=== PATIENT | female | born 1945 | race Caucasian/White ===

== ENCOUNTER 2017-02-13 14:58 | Day surgery (SDC) | payer MEDICARE, MEDICAID ==
[~2017-02-13 14:58] MED LIST: ABILIFY5 M1 PO; ABILIFY5 MG PO; ADVAIR 5001 DISK W/D; ADVAIR 50028 BLISTE1 INH; ADVAIR 50028 BLISTER INH; AIRET0.83 MG/ML; ALBUTEROL17 GM; ALBUTEROL17 GM INH; ALPRAZOLAM1 MG; AMILORIDE HCL-H1 TAB PO; ANTIVERT12.5 MG; ANTIVERT25 M1 PO; ANTIVERT25 MG PO; ATROVENT0.2 MG/ML; BENADRYL25 MG/TA1 PO; BYSTOLIC5 M1 PO; CALCIUM 500 +1 EAC9 PO; CENTRUM SILVER1 TA; CLOBETASOL PROP15 G1 TP; CLONAZEPAM0.5 M2 PO; DARVOCET-N 1001 TAB; EFFER-K 10 MEQ10 MEQ PO; EFFEXOR XR150 M1 PO; EFFEXOR XR150 MG; EFFEXOR100 MG PO; ELAVIL100 MG; ELAVIL100 MG PO; FIBERCON625 M1 PO; FLONASE ALLERG9.9 ML NS; FLONASE16 GM; FLONASE16 GM NS; FOSAMAX70 M1 PO; GLYCOLAX527 GM; HYZAAR 100-12.1 EACH PO; INCRUSE ELLI62.5 MCG INH; IRON325 M3 PO; LAMICTAL100 M2 PO; LORTAB 5/5001 EA PO; LOTREL 10/20 MG1 CAP; METRONIDAZOLE45 GM TP; MICROZIDE12.5 MG; MIRALAX17 G2 PO; MIRALAX17 GM PO; MODURETIC 5/501 TAB; MODURETIC 5/501 TAB PO; MOTRIN400 MG PO; MULTIVITAMINS1 EACH PO; NORTRIPTYLINE H50 MG; NORVASC10 M2 PO; NYSTATIN1 EACH MC; OMEPRAZOLE20 M1 PO; OMEPRAZOLE20 M3 PO; PENICILLIN V P500 MG; POTASSIUM CHLO20 ME3 PO; PREDNISONE5 M1 PO; PREMARIN30 GM VG; PREMARIN45 GM VG; PRILOSEC20 MG; PROAIR HFA8.5 GM INH; PROCHLORPERAZIN10 MG PO; REGLAN10 MG; REQUIP0.25 MG; SINGULAIR10 MG; SINGULAIR10 MG PO; TEMOVATE30 GM TP; TRAZODONE HCL100 M1 PO; TRIAMCINOLONE A15 GM TP; VENTOLIN HFA18 G2 PO; VITAMIN D350000 UNI1 PO; XANAX2 MG PO; ZITHROMAX; ZITHROMAX250 M1 PO; [UNRECOGNIZED DRUG - OTHER]; [UNRECOGNIZED DRUG - OTHER]; [UNRECOGNIZED DRUG - OTHER]; [UNRECOGNIZED DRUG - OTHER] VG
== END 2017-02-13 19:50 ==
LOC: SHSA 14:58
PROC: 0Y6S0Z0 Detachment at Left 2nd Toe, Complete, Open Approach (ICD-10-PCS; principal; 2017-02-13)
DX: M20.42 Other hammer toe(s) (acquired), left foot (principal); I10 Essential (primary) hypertension; E78.5 Hyperlipidemia, unspecified; M19.90 Unspecified osteoarthritis, unspecified site; E27.40 Unspecified adrenocortical insufficiency; F41.9 Anxiety disorder, unspecified; F32.9 Major depressive disorder, single episode, unspecified; J45.909 Unspecified asthma, uncomplicated; K21.9 Gastro-esophageal reflux disease without esophagitis; Z79.52 Long term (current) use of systemic steroids; Z79.83 Long term (current) use of bisphosphonates; Z79.899 Other long term (current) drug therapy; Z88.8 Allergy status to other drugs, medicaments and biological substances; Z86.73 Personal history of transient ischemic attack (TIA), and cerebral infarction without residual deficits; Z90.49 Acquired absence of other specified parts of digestive tract; Z98.84 Bariatric surgery status; Z98.890 Other specified postprocedural states
CPT/HCPCS: J1030